=== PATIENT | female | born 1965 | race Hispanic/Latino ===

== ENCOUNTER 2018-04-09 11:44 | Day surgery (SDC) | payer BC ==
[2018-04-03 11:38] VITALS: BMI 33.6
[2018-04-09] MEDS ORDERED: Rocuronium 10 mg/ml (5 ml) ONE ×2 (13:37→14:51)
[2018-04-09] MEDS ORDERED: Midazolam 2 MG/2 ML VIAL ONE (13:37)
[2018-04-09] MEDS ORDERED: Propofol 10 mg/ml Inj (20 ML) ONE (13:37)
[2018-04-09] MEDS ORDERED: HYDROmorphone 0.5 mg/0.5 ml ISec IVP PRN (13:55)
[2018-04-09] MEDS ORDERED: Bupivacaine 0.5% Inj(30mL) ONE (14:00)
[2018-04-09] MEDS ORDERED: Iohexol 240 (50 ml) ONE (14:00)
[2018-04-09] MEDS ORDERED: Lactated Ringer's 1,000 ML IV SCH (14:00)
[2018-04-09] MEDS ORDERED: Iohexol 240 MG/100 ML SOL IJ ONE (14:40)
[2018-04-09] MEDS ORDERED: ePHEDrine 50 mg/ml Inj ONE (14:49)
[2018-04-09] MEDS ORDERED: Bupivacaine 0.5% Inj(30mL) IJ ONE (15:00)
[2018-04-09] MEDS ORDERED: Neostigmine Methylsulfate 3mg/3ml Syringe IV ONE (15:02)
[2018-04-09] MEDS ORDERED: Glycopyrrolate 0.2 mg/ml (2ml vial) ONE (15:03)
--- NOTE | 2018-04-09 15:28 | PCM.SURG1 ---
Surgeon's Initial Post Op Note - Surgeon's Notes Surgeon: Dr. Carballo Compressed Yeast Supervisor: Dr. Stokes PGY3 Type of Anesthesia: General Endo Pre-Operative Diagnosis: cholelithiasis Operative Findings: see dictation Post-Operative Diagnosis: same Operation Performed: laparscopic cholecystectomy Specimen/Specimens Removed: gallbladder Estimated Blood Loss: EBL {In ML}: 5 Blood Products Given: N/A Drains Used: No Drains Post-Op Condition: Good Date of Surgery/Procedure: 04/09/18 Time of Surgery/Procedure: 15:28
[2018-04-09] MEDS ORDERED: HYDROmorphone 0.5 mg/0.5 ml ISec ONE (15:31)
[2018-04-09 16:35] VITALS: RESP 18; TEMP 97.3
[2018-04-09 18:09] VITALS: BP 117/70; PULSE 68; O2SAT 95
--- NOTE | 2018-04-10 11:29 | RAD ---
Date of service: 04/09/2018 PROCEDURE: Operative cholangiogram HISTORY: ? CBD OBST COMPARISON: TECHNIQUE: 39.5 seconds of fluoro time. Cumulative dose 6.92 mGy. 2 images were submitted FINDINGS: There are no filling defects in the distal common duct. Contrast flows into the duodenum without obstruction IMPRESSION: As above
--- NOTE | 2018-04-24 01:09 | OP ---
PROCEDURE DATE: 04/09/2018 PREOPERATIVE DIAGNOSES: Chronic cholecystitis, cholelithiasis. POSTOPERATIVE DIAGNOSES: Chronic cholecystitis, cholelithiasis. PROCEDURE PERFORMED: Laparoscopic cholecystectomy with intraoperative cholangiogram. SURGEON: Dick Carballo MD. ALLERGY SPECIALIST: Elvira Stokes DO. ANESTHESIOLOGIST: Dr. Galvan. ANESTHESIA: General endotracheal anesthesia. ESTIMATED BLOOD LOSS: Minimal. SPECIMEN: Gallbladder with stones. INDICATIONS: The patient is a 52-year-old obese female with history of recurrent right upper quadrant abdominal pain associated with tenderness and discomfort. The patient had an ultrasound showing presence of cholelithiasis and was scheduled for laparoscopic cholecystectomy. DESCRIPTION OF PROCEDURE: The patient was brought to the operating room, placed on the operating table in a supine position. The patient was connected to the EKG, blood pressure and pulse oximetry monitors. The patient then underwent general endotracheal anesthesia and was prepped and draped in the usual sterile fashion. First, standard time-out procedure took place when everybody in the room were agreed as to the patient's identity, diagnoses and procedure to be performed. Using 2 towel clips, the anterior abdominal wall was elevated and Veress needle was inserted through the small incision superior to the umbilicus. Once pneumoperitoneum was obtained, a 12-mm trocar was inserted through that incision and careful evaluation of the abdominal cavity took place. First, the gallbladder appeared to be slightly distended with some adhesions of the omentum to the gallbladder. The remaining portion of the liver as well as the visible portion of the stomach and small bowel as well as some portion of the colon appeared to be within the normal limits. We then proceeded with placement of the 5-mm trocar in the subxiphoid position and proceeded with careful dissection of that gallbladder. The adhesions of the omentum to the gallbladder were taken down and the infundibulum of the gallbladder was exposed. This was grabbed and elevated and the cystic duct was carefully skeletonized from the surrounding tissues and from them. The cystic artery which was directly behind it was also mobilized and from the surrounding tissues. Now, we proceeded with placing of the cystic duct clip proximally take out the cystic duct from the gallbladder. Once this was done, a small incision was made on the side of the cystic duct and a cholangiocatheter was inserted through that incision into the cystic duct. Now, under direct visualization with fluoroscopy, cholangiogram was obtained. The cholangiogram showed prompt flow of dye into the entire biliary tree with no evidence of obstruction. The dye promptly emptied into the duodenum. There was no evidence of any defect indicating presence of stones. At this point, we removed the catheter and proceeded with clipping the cystic duct distally and transacted it. Cystic artery was also clipped proximally and distally and transected. The gallbladder was now carefully taken off its liver bed using the electrocautery. Once completely detached from the liver, it was placed in the EndoCatch bag and removed through the periumbilical incision. The abdominal cavity was then copiously irrigated. All the irrigant fluid was suctioned out. There was excellent hemostasis. The pneumoperitoneum was released. Trocar was removed and the wound was closed using 0 Vicryl for fascia, 3-0 Vicryl for subcutaneous tissue and 4-0 Monocryl for skin. A sterile Dermabond dressing was applied to the wound. The patient tolerated the procedure well and there were no complications. The patient was awakened and transferred to the recovery room for further observation. Dick Carballo MD
== END 2018-04-09 18:40 | disposition home or self-care (01) ==
LOC: SDS 11:44
PROVIDERS: ATTEND General Practice
DX: K80.10 Calculus of gallbladder with chronic cholecystitis without obstruction (principal); E66.9 Obesity, unspecified; Z68.33 Body mass index [BMI] 33.0-33.9, adult
CPT/HCPCS: 47563; 74300; 88304; J0690; J1170; J2001; J2250; J2405; J2704; J2710; J3010; J7120 ×2; Q9966 ×2